=== PATIENT | male | born 1955 | race Caucasian/White ===

== ENCOUNTER → 2016-03-10 | Outpatient (CLI) | payer BC, MEDICARE ==
[~2016-03-10] MED LIST: ALLP300T; ANDROGEL; ATRV10T PO; CYCL10TA9 PO; DILT240C PO; DILTIAZEM 240 MG; EXEN2VIA SQ; FNT75TD TD; GLIM2TAB PO; GLMP2T; GLYB2.5T2 PO; HYDR-34 PO; HYDR-3720 PO; LEVO500T69 PO; LSNP10T PO; MEPE50TA PO; METF-380 PO; MTF500T; OXYC-12 PO; OXYC-309 PO; PHEN200T27 PO; PIOG45TA PO; TMSL.4C PO
--- NOTE | 2016-03-10 10:31 | Diagnostic Imaging Report ---
PROCEDURE: CT urinary tract, rule out kidney stone. TECHNIQUE: Multiple contiguous axial images were obtained through the abdomen and pelvis without the use of intravenous contrast. INDICATION: Right-sided abdominal pain. Hematuria. History of previous lithotripsy. COMPARISON: 02/09/2008. FINDINGS: Included views of the lung bases are clear. CT ABDOMEN: There is lsskuvvu-ot-sjnxdz right-sided hydroureteronephrosis. This is secondary to a 5 mm this and the distal right ureter just proximal to the UVJ. Additional 4 mm calculus is seen within the urinary bladder in the region of the UVJ (images 144 and 148, series 2). There is a single nonobstructive renal calculus within the inferior pole the left kidney. There is no hydronephrosis or other evidence of obstruction on the left. There is a 1.1 cm rounded fat density lesion involving the posterior margins of the inferior pole of the right kidney. This has increased in size compared to 0.5 cm on exam dated 02/01/2008 and could represent angiomyolipoma. The liver, spleen, pancreas, and adrenal glands have a normal noncontrast CT appearance. Small bowel loops are nondistended. Normal appendix cannot be adequate identified, but there is no pericecal inflammation. There is colonic diverticulosis, but no CT evidence of acute diverticulitis. There is no loculated fluid collection, free fluid or free air. No abnormal mesenteric or retroperitoneal adenopathy is seen. There is mild scattered calcified aortic and arterial atherosclerosis. Bony structures show no acute abnormalities. There is a fat-containing umbilical hernia. Ostia measures roughly 2.[address] PELVIS: Again, calculi are seen in the distal right ureter and UVJ. There is no loculated fluid collection, free fluid or free air within the pelvis. No abnormal lymph nodes are seen. Bony structures show no acute malleus IMPRESSION: 1. Fkpxpeos-sx-xbhsxb right-sided hydroureteronephrosis secondary to calculi within the distal right ureter and at the right UVJ. 2. Additional nonobstructive left renal calculus. 3. 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 4. Colonic diverticulosis, but no CT evidence of acute diverticulitis. 5. Fat-containing umbilical hernia. Dictated by: Dictated on workstation # [id number]
== END ==
LOC: RAD 09:18
PROVIDERS: ATTEND Registered Nurse
DX: R10.31 Right lower quadrant pain (principal); R31.9 Hematuria, unspecified; Z87.442 Personal history of urinary calculi; N13.2 Hydronephrosis with renal and ureteral calculous obstruction; K57.30 Diverticulosis of large intestine without perforation or abscess without bleeding; K42.9 Umbilical hernia without obstruction or gangrene
CPT/HCPCS: 74176

== ENCOUNTER → 2016-03-10 | Outpatient (CLI) | payer BC, MEDICARE ==
--- NOTE | 2016-03-10 13:02 | Diagnostic Imaging Report ---
INDICATION: Nephrolithiasis. KUB FINDINGS: There is a 6 mm opaque stone projecting over the inferior pole of left kidney. No appreciable radiopaque stone is seen in the right kidney. Bowel gas pattern is normal. Patient has had previous fusion at L5-S1. IMPRESSION: Left nephrolithiasis. Dictated by: Dictated on workstation # [id number]
== END ==
LOC: RAD 12:10
PROVIDERS: ATTEND Urology
DX: N20.1 Calculus of ureter (principal)
CPT/HCPCS: 74000

== ENCOUNTER → 2016-03-13 | Outpatient (CLI) | payer BC, MEDICARE ==
--- NOTE | 2016-03-13 13:42 | Diagnostic Imaging Report ---
INDICATION: Nephrolithiasis. EXAMINATION: KUB at 11:41 AM. FINDINGS: There is a 6 mm stone projecting over the lower pole of the left kidney. The bowel gas pattern is normal. The patient has had previous fusion at L5-S1. IMPRESSION: Left nephrolithiasis. Dictated by: Dictated on workstation # [id number]
== END ==
LOC: RAD 11:13
PROVIDERS: ATTEND Urology
DX: N20.0 Calculus of kidney (principal)
CPT/HCPCS: 74000

== ENCOUNTER → 2020-10-04 | Outpatient (CLI) | payer BC, MEDICARE ==
--- NOTE | 2020-10-04 10:44 | Diagnostic Imaging Report ---
INDICATION: Knee pain. COMPARISON: None available. TECHNIQUE: Three radiographs of the left knee dated 10/04/2020. FINDINGS: No acute fracture or dislocation. No destructive osseous process. Mild medial and lateral joint space narrowing. Mild osteophytosis. Faint chondrocalcinosis of the menisci is noted, greatest involving the lateral meniscus. Calcifications noted along the anterior aspect of the lateral tibial spine. Small knee joint effusion. Moderate-sized superior and inferior patellar enthesophytes. IMPRESSION: No acute osseous abnormality with mild degenerative changes. 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 Osteophyte versus loose body along the anterior aspect of the tibial spine. Small knee joint effusion. Additional findings as above. Dictated by: Dictated on workstation # [id number]
== END ==
LOC: RAD 09:56
PROVIDERS: ATTEND Nurse Practitioner Family
DX: M17.12 Unilateral primary osteoarthritis, left knee (principal); M11.262 Other chondrocalcinosis, left knee; M25.462 Effusion, left knee; M76.52 Patellar tendinitis, left knee; M25.862 Other specified joint disorders, left knee; M25.762 Osteophyte, left knee
CPT/HCPCS: 73562

== ENCOUNTER → 2021-04-22 | Outpatient (CLI) | payer BC, MEDICARE ==
--- NOTE | 2021-04-22 18:02 | Diagnostic Imaging Report ---
PROCEDURE: MRI lumbar spine. TECHNIQUE: Multiplanar, multisequence MRI of the lumbar spine was performed without contrast. DATE: April 22, 2021. COMPARISON: MRI lumbar spine April 13, 2020. INDICATION: 66-year-old male, increasing low back pain. FINDINGS: There is posterior spinal fusion hardware with hardware related artifact at L5-S1. There is grade 1 anterolisthesis of L5 on S1 measuring 4 mm. There is a T1 and T2 hyperintense lesion in the L3 vertebral body compatible with benign vertebral body hemangioma. There is no evidence of a diffuse marrow infiltrating or replacing process. There is no identified compression deformity or fracture. There is no identified focal concerning bone lesion. The visualized cord and conus medullaris is unremarkable and terminates at the L1-L2 level. There is mild disc height loss at L2-L3. There is severe disc height loss at L5-S1. There is partial ankylosis across the L5-S1 disc space. L1-L2: There is an annular tear. There is mild diffuse disc bulge. There is mild narrowing of the bilateral lateral recesses. The facet joints and ligamentum flavum are unremarkable. There is mild bilateral foraminal narrowing. There is moderate spinal canal stenosis. L2-L3: There is diffuse disc bulge eccentric to the right. There is severe narrowing of the right lateral recess and moderate narrowing of the left lateral recess. There is some prominence of the posterior epidural fat. The facet joints and ligamentum flavum are unremarkable. There is moderate to severe right and moderate left foraminal narrowing. There is severe spinal canal stenosis. L3-L4: There is a large diffuse disc bulge. There is severe narrowing of the bilateral lateral recesses. The facet joints and ligamentum flavum are unremarkable. There is severe bilateral foraminal narrowing. There is severe spinal canal stenosis. L4-L5: There is very limited evaluation at this level given the degree of hardware related artifact. There is no obvious disc protrusion or extrusion. There is limited assessment of foraminal stenosis and spinal stenosis at this level. There is no obvious severe spinal stenosis. L5-S1: There is no visualized disc protrusion or extrusion. There is no high-grade narrowing of the lateral recesses or spinal canal. There is limited assessment for foraminal stenosis given hardware related artifact. IMPRESSION: 1. Multilevel predominantly disc degenerative changes of the lumbar spine most notable at L2-L3, L3-L4 and L1-L2. 2. Grade 1 anterolisthesis of L5 on S1 with posterior spinal fusion hardware at L5-S1. 3. There is a substantial progression of arthritis since prior MRI on April 13, 2010. Dictated by: Dictated on workstation # [id number]
== END ==
LOC: RAD 13:15
PROVIDERS: ATTEND Nurse Practitioner Family
DX: M51.36 Other intervertebral disc degeneration, lumbar region (principal); M43.17 Spondylolisthesis, lumbosacral region; M47.816 Spondylosis without myelopathy or radiculopathy, lumbar region; Z98.1 Arthrodesis status
CPT/HCPCS: 72148

== ENCOUNTER 2021-06-15 22:04 | Emergency (ER) | payer BC, MEDICARE ==
[~2021-06-15] VITALS: Ht 187 cm; Wt 129.0 kg
[2021-06-15] MEDS ORDERED: morphine INJ 10 MG/ML 1ML (SYR OR VIAL) IM STA (22:34)
--- NOTE | 2021-06-15 22:38 | ED Back Pain ---
General Chief Complaint: Back Problems Stated Complaint: SEVERE BACK PAIN Nursing Triage Note: PT AMB TO [facility] WITH SPOUSE WITH C/O R SIDE LOW BACK PAIN FOR A FEW DAYS. PT HAS CHRONIC LOW BACK PAIN Source of Information: Patient Exam Limitations: No Limitations History of Present Illness Date Seen by Provider: June 15, 2021 Time Seen by Provider: 22:20 Initial Comments Patient reports the ER by private conveyance with intractable right-sided low back pain not radiating down past his buttock. No numbness tingling loss of control of bowel or bladder. No recent trauma. He has history of imaging and surgeries on his back. He has a new surgeon he supposed to follow-up with Dr. Massey. He is known to Dr. DELACRUZ. He typically relies on Percocet 10 mg 3 times a day in addition to fentanyl patches however he says a cleaning lady still his fentanyl patches 2 days ago and now his pain is intractable despite Tylenol and topical creams. Allergies and Home Medications Allergies Coded Allergies: celecoxib (Unverified Allergy, Unknown, N/V, 04/22/21) Patient Home Medication List Home Medication List Reviewed: Yes Atorvastatin Calcium (Lipitor 10 Mg) 10 Mg Tablet, 1 EACH PO DAILY, (Reported) Entered as Reported by: MISA PETERSON on 02/01/08 09 Cyclobenzaprine Hcl (Cyclobenzaprine Hcl) 10 Mg Tablet, 1 EACH PO Q8HR PRN PRN for SPASMS Prescribed by: MARE SANFORD on 03/14/131950 Diltiazem Hcl (Diltiazem Cd 240 Mg (Once Daily)) 240 Mg Cap.sr.24h, 1 EACH PO DAILY, (Reported) Entered as Reported by: GILDARDO OLVERA on 04/04/10 1010 Exenatide Microspheres (Bydureon) 2 Mg Vial, 2 MG SQ WEEKLY, (Reported) Entered as Reported by: ELISA CERRATO on 08/14/12 1341 Fentanyl (Duragesic 75MCG Patch) 1 Ea Patch, 1 EACH TD Q72H, (Reported) Entered as Reported by: MISA PETERSON on 02/01/08 09 Glimepiride (Glimepiride) 2 Mg Tablet, 2 MG PO DAILY, (Reported) Entered as Reported by: ELISA CERRATO on 08/14/12 1341 Hydrocodone Bit/Acetaminophen (Lortab 7.5 Mg Tablet) 1 Each Tablet, 1-2 EACH PO Q6H PRN for PAIN Prescribed by: MARE SANFORD on 03/14/131950 Levofloxacin (Levaquin 500 Mg) 500 Mg Tab, 1 EACH PO DAILY Prescribed by: MARE SANFORD on 12/01/122219 Lisinopril (Zestril) 10 Mg Tab, 10 MG PO DAILY, (Reported) Entered as Reported by: MISA PETERSON on 02/01/08 0925 Metformin Hcl (Metformin 1000 Mg) 1,000 Mg Tablet, 1 EACH PO BID WITH MEALS, (Reported) Entered as Reported by: SAJI HOLLIDAY on 04/13/10 1452 Oxycodone Hcl/Acetaminophen (Percocet 5-325 Mg Tablet) 1 Each Tablet, 1-2 EACH PO Q6H PRN Prescribed by: BRANNON OLIVO on 07/10/12 1213 Oxycodone Hcl/Acetaminophen (Oxycodone-Acetaminophen 5-325) 1 Each Tablet, 1 EACH PO Q4H PRN Prescribed by: MARE SANFORD on 12/01/122219 Phenazopyridine Hcl (Pyridium) 200 Mg Tablet, 1 EACH PO TID Prescribed by: MARE SANFORD on 12/01/122219 Pioglitazone Hcl (Actos) 45 Mg Tablet, 45 MG PO DAILY, (Reported) Entered as Reported by: GILDARDO OLVERA on 04/04/10 1010 [Androgel] , (Reported) Entered as Reported by: GILDARDO OLVERA on 04/04/10 1010 Review of Systems Constitutional: No chills, No diaphoresis EENTM: No ear discharge, No ear pain Respiratory: No cough, No short of breath Cardiovascular: No chest pain, No edema Gastrointestinal: No abdominal pain, No nausea, No vomiting Genitourinary: No discharge, No dysuria All Other Systems Reviewed Negative Unless Noted: Yes Past Inkwspg-Bscuwd-Ttkoga Hx Patient Social History Tobacco Use?: No Use of E-Cig and/or Vaping dev: No Substance use?: No Alcohol Use?: Yes Alcohol type: Hard Liquor Alcohol Frequency: Once in a while Pt feels they are or have been: No Immunizations Up To Date First/Initial COVID19 Vaccinat: 2020 Second COVID19 Vaccination Rosas: 2020 COVID19 Vaccine Factory Hand: CORINDunia Past Medical History Surgery/Hospitalization HX: DM, HTN, HLD Reproductive Disorders: No Sexually Transmitted Disease: No Chronic Back Pain Diabetes, Non-Insulin dep Family Medical History No Pertinent Family Hx Physical Exam Vital Signs Vital Signs - First Documented 06/15/21 22:16 Temp 36.3 Pulse 103 Resp 20 B/P (MAP) 197/113 (141) Capillary Refill : Height, Weight, BMI Height: 6'2" Weight: 320lbs. oz. 145.368219em; 36.00 BMI Method:Stated General Appearance: Mild Distress, Obese HEENT: PERRL/EOMI, Pharynx Normal, Moist Mucous Membranes Neck: Full Range of Motion, Normal Inspection Cardiovascular: Regular Rate, Rhythm, Normal Peripheral Pulses Respiratory: No Accessory Muscle Use, No Respiratory Distress Back: Normal Inspection, No Vertebral Tenderness, Muscle Spasm (Right-sided paravertebral lumbar pain.) Neurologic/Psychiatric: Alert, Oriented x3, No Motor/Sensory Deficits, Normal Mood/Affect Skin: Normal Color, Warm/Dry Procedures/Interventions Progress Point tenderness injection: 1.5 cc of 1% lidocaine without epinephrine mixed with half percent Marcaine without epinephrine 1.5 cc. Site was cleansed thoroughly with alcohol and using Z track method we injected the point of maximal tenderness using a 25-gauge 1-1/2 inch needle. We could n ot aspirate any blood on withdrawal of the plunger so we injected in the region of his point tenderness the admixture and then covered with a sterile bandage. Patient tolerated the procedure well Progress/Results/Core Measures Results/Orders My Orders Orders - JAE STEPHEN Bupivacaine 0.5% Injection (Sensorcaine (06/15/21 22:45) Morphine Injection (Morphine Injection (06/15/21 22:34) Medications Given in ED Current Medications Medications Dose Ordered Sig/Gallito Route Start Time Stop Time Status Last Admin Dose Admin Bupivacaine HCl 30 ml ONCE ONCE INJ 06/15/21 22:45 06/15/21 22:46 06/15/21 22:41 30 ML Vital Signs/I&O 06/15/21 22:16 Temp 36.3 Pulse 103 Resp 20 B/P (MAP) 197/113 (141) Blood Pressure Mean: 141 Progress Progress Note : Time: 22:37 Progress Note Nontraumatic right sided lumbago. Will give him some morphine for his complication of opiate withdrawal. Lidocaine and Marcaine injection point tenderness. Departure Impression Primary Impression: Lumbago Qualified Codes: M54.50 - Low back pain, unspecified Disposition: HOME, SELF-CARE Condition: Stable Departure-Patient Inst. Decision time for Depature: 22:43 Referrals: ESPERANZA DELACRUZ MD (PCP/Family) Primary Care Physician Patient Instructions: Low Back Pain in Adults Add. Discharge Instructions: Follow-up with Dr. Delacruz tomorrow. Heating pads, topical creams, lidocaine patches etc. All discharge instructions reviewed with patient and/or family. Voiced u nderstanding. Copy Copies To 1: ESPERANZA DELACRUZ MD, TITUS J June 15, 2021 22:38
[2021-06-15] MEDS ORDERED: BUPIVACAINE 0.5% 30 ML (SENSORCAINE) VIAL INJ ONE (22:45)
[2021-06-15 22:55] VITALS: BP 159/107
== END 2021-06-15 22:56 | disposition home or self-care (01) ==
LOC: EDUNIT# 22:04 → ER 22:08
DX: G89.29 Other chronic pain (principal); M54.50 Low back pain, unspecified; Z98.890 Other specified postprocedural states

== ENCOUNTER 2021-09-16 15:17 | Emergency (ER) | payer BC, MEDICARE ==
[~2021-09-16] VITALS: Ht 187.9 cm; Wt 131.5 kg
[2021-09-16] MEDS ORDERED: HYDROcodone/APAP 7.5 MG/325 MG (LORTAB, LORCET PLUS) TABLET PO ONE (16:00)
--- NOTE | 2021-09-16 16:59 | ED Fall/Injury ---
General Chief Complaint: Trauma-Non Activation Stated Complaint: FELL ON BUTT, PAIN Nursing Triage Note: slipped on some water while at home last night around 1900 landing on his "butt". states has increased pain today to his tailbone Source: patient, family Exam Limitations: no limitations History of Present Illness Date Seen by Provider: Sep 16, 2021 Time Seen by Provider: 15:42 Initial Comments Patient is a 66-year-old male history of chronic pain and severe degenerative changes in the right hip. He had a mechanical trip and fall at around 7:00 last night slipping on some water and falling onto his buttocks. Patient and his states that he had a significant amount of difficulty in getting back up to his feet. He was finally able to do so. He denies any pain in his lower extremities other than his chronic pain. No numbness, tingling or weakness. He does ambulate with a cane. He denies back pain, the pain is all in his lower pe lvis. He denies loss of bowel or bladder function, he denies loss sensation to the groin. He complains of some swelling and bruising discoloration to the fingers of the right hand where he attempted to catch himself. He did not hit his head or have loss of consciousness. He is scheduled to have a hip replacement December 12 at [facility]. All other review of systems reviewed and negative except as stated. Location Injury Occurred: at home Occurred: yesterday Severity: severe Injuries/Pain Location: pelvis Context: tripped Loss of Consciousness: no loss of consciousness Modifying Factors: Worse With Movement Associated Symptoms (Fall): Denies Symptoms Allergies and Home Medications Allergies Coded Allergies: celecoxib (Unverified Allergy, Unknown, N/V, 04/22/21) Patient Home Medication List Home Medication List Reviewed: Yes Atorvastatin Calcium (Lipitor 10 Mg) 10 Mg Tablet, 1 EACH PO DAILY, (Reported) Entered as Reported by: MISA PETERSON on 02/01/08924 Cyclobenzaprine Hcl (Cyclobenzaprine Hcl) 10 Mg Tablet, 1 EACH PO Q8HR PRN PRN for SPASMS Prescribed by: MARE SANFORD on 03/14/131950 Diltiazem Hcl (Diltiazem Cd 240 Mg (Once Daily)) 240 Mg Cap.sr.24h, 1 EACH PO DAILY, (Reported) Entered as Reported by: GILDARDO OLVERA on 04/04/10 1010 Exenatide Microspheres (Bydureon) 2 Mg Vial, 2 MG SQ WEEKLY, (Reported) Entered as Reported by: ELISA CERRATO on 08/14/12 1341 Fentanyl (Duragesic 75MCG Patch) 1 Ea Patch, 1 EACH TD Q72H, (Reported) Entered as Reported by: MSIA PETERSON on 02/01/08 0926 Glimepiride (Glimepiride) 2 Mg Tablet, 2 MG PO DAILY, (Reported) Entered as Reported by: ELISA CERRATO on 08/14/12 1341 Hydrocodone Bit/Acetaminophen (Lortab 7.5 Mg Tablet) 1 Each Tablet, 1-2 EACH PO Q6H PRN for PAIN Prescribed by: MARE SANFORD on 03/14/131950 Levofloxacin (Levaquin 500 Mg) 500 Mg Tab, 1 EACH PO DAILY Prescribed by: MARE SANFORD on 12/01/122219 Lisinopril (Zestril) 10 Mg Tab, 10 MG PO DAILY, (Reported) Entered as Reported by: MISA PETERSON on 02/01/08 09 Metformin Hcl (Metformin 1000 Mg) 1,000 Mg Tablet, 1 EACH PO BID WITH MEALS, (Reported) Entered as Reported by: SAJI HOLLIDAY on 04/13/10 1452 Oxycodone Hcl/Acetaminophen (Percocet 5-325 Mg Tablet) 1 Each Tablet, 1-2 EACH PO Q6H PRN Prescribed by: BRANNON OLIVO on 07/10/12 1213 Oxycodone Hcl/Acetaminophen (Oxycodone-Acetaminophen 5-325) 1 Each Tablet, 1 EACH PO Q4H PRN Prescribed by: MARE SANFORD on 12/01/122219 Phenazopyridine Hcl (Pyridium) 200 Mg Tablet, 1 EACH PO TID Prescribed by: MARE SANFORD on 12/01/122219 Pioglitazone Hcl (Actos) 45 Mg Tablet, 45 MG PO DAILY, (Reported) Entered as Reported by: GILDARDO OLVERA on 04/04/10 1010 [Androgel] , (Reported) Entered as Reported by: GILDARDO OLVERA on 04/04/10 1010 Review of Systems Review of Systems Constitutional: see HPI Eyes: No Symptoms Reported Ears, Nose, Mouth, Throat: no symptoms reported Respiratory: no symptoms reported Cardiovascular: no symptoms reported Gastrointestinal: no symptoms reported Genitourinary: no symptoms reported Musculoskeletal: other (Pelvic pain) Skin: no symptoms reported All Other Systems Reviewed Negative Unless Noted: Yes Past Xbctaiw-Mawstk-Terury Hx Patient Social History Tobacco Use?: No Use of E-Cig and/or Vaping dev: No Substance use?: Yes Substance type: Other Additional substance use comme: thc gummies Substance frequency: Once in a while Alcohol Use?: No Pt feels they are or have been: No Immunizations Up To Date Influenza Vaccine Up-to-Date: No; Not Current First/Initial COVID19 Vaccinat: feb 2020 Second COVID19 Vaccination Rosas: mar 2020 COVID19 Vaccine Physical Therapy Coordinator: modernchaz Past Medical History Surgery/Hospitalization HX: DM, HTN, HLD Reproductive Disorders: No Sexually Transmitted Disease: No Chronic Back Pain Diabetes, Non-Insulin dep Family Medical History No Pertinent Family Hx Physical Exam Vital Signs Vital Signs - First Documented Capillary Refill : Less Than 3 Seconds Height, Weight, BMI Height: 6'2" Weight: 320lbs. oz. 145.446675pu; 37.00 BMI Method:Stated General Appearance: WD/WN, mild distress (Appears to be on current) Cardiovascular: regular rate, rhythm Respiratory: lungs clear, normal breath sounds, no respiratory distress, no accessory muscle use Gastrointestinal: normal bowel sounds, non tender, soft Extremities: normal range of motion, no calf tenderness, other (Limited range of motion to the bilateral knees secondary to pain; bruising to the right middle finger with some swelling. Range of motion intact, good strength) Neurologic/Psychiatric: no motor/sensory deficits, alert, normal mood/affect, oriented x 3 Skin: normal color, warm/dry Progress/Results/Core Measures Results/Orders My Orders Orders - INO DAUGHERTY MD Pelvis (09/16/21 15:54) Hydrocodone/Apap 7.5/325 Tab (Lortab 7. (09/16/21 16:00) Medications Given in ED Current Medications Medications Dose Ordered Sig/Gallito Route Start Time Stop Time Status Last Admin Dose Admin Acetaminophen/ Hydrocodone Bitart 1 ea ONCE ONCE PO 09/16/21 16:00 09/16/21 16:01 DC 09/16/21 16:11 1 EA Vital Signs/I&O 09/16/21 09/16/21 15:55 15:55 Temp 36.1 36.1 Pulse 114 114 Resp 18 18 B/P (MAP) 112/86 (95) 112/86 (95) Pulse Ox 94 95 Blood Pressure Mean: 95 Progress Progress Note : Time: 17:27 Progress Note Patient given a hydrocodone p.o. here in the department. He is wearing half of 100 mcg fentanyl patch. When I advised him that there was no obvious bony abnormality to the bones of the pelvis he was able to get up from the chair he was reclining in and settle in a wheelchair. All, it seemed he was eager to know was if he had broken a bone. He declined any further pain medicines or prescriptions. I did advise him on other conservative measures to help alleviate his pain. Both he and his verbalized understanding. All questions were sought and answered. Patient is stable for discharge. Diagnostic Imaging Diagonstic Imaging: Xray Plain Films/CT/US/NM/MRI: pelvis Comments [facility], [place] NAME: NGHIA ALVES [facility] REC#: [id number] PT STATUS: REG ER : 1955 PHYSICIAN: INO DAUGHERTY MD ADMIT DATE: 09/16/21/ER Signed Date of Exam:09/16/21 PELVIS INDICATION: Pain, fall. COMPARISON: 03/13/2016. TECHNIQUE: Two radiographs of the pelvis dated 09/16/2021. FINDINGS: Postsurgical changes within the lumbosacral spine are again identified without evidence of hardware complication on the submitted images. 8 mm calcification overlying the inferior pole of the left renal shadow is again identified, appearing stable. No acute fracture or dislocation. No destructive osseous process. Severe degenerative changes of the right hip are noted with severe joint space narrowing superiorly and prominent osteophyte formation. Mild degenerative changes of the left hip are also identified. The sacroiliac joints are intact. IMPRESSION: No acute osseous abnormality with scattered osseous degenerative changes, including severe degenerative changes of the right hip. Left renal calculus is again suspected. Dictated by: Dictated on workstation # [id number] Dict: 09/16/21 1070 Trans: 09/16/211702 [id number] Interpreted by: GARRICK CHO MD Electronically signed by: GARRICK CHO MD 09/16/211702 Departure Impression Primary Impression: Fall Qualified Codes: W19.XXXA - Unspecified fall, initial encounter Additional Impression: Contusion of pelvis Qualified Codes: S30.0XXA - Contusion of lower back and pelvis, initial encounter Disposition: HOME, SELF-CARE Condition: Stable Departure-Patient Inst. Decision time for Depature: 17:09 Referrals: ESPERANZA MORGAN MD (PCP/Family) Primary Care Physician Patient Instructions: Coccyx Injury Add. Discharge Instructions: Continue your pain medications as prescribed. Alternate heat packs and ice packs to the area of your low back and buttocks as needed for inflammation and pain. You can add tkft-vgv-bbjzynt Biofreeze or other pain relieving ointments to the area as well which may help add to the pain relief from your fentanyl patch as well as heat and ice patches. If you develop numbness, tingling or weakness in your legs or you lose bowel or bladder function or you have any other emergent, concerning symptoms please come back to the emergency room for reevaluation. Copy Copies To 1: ESPERANZA MORGAN MD, KATHRYN M MD Sep 16, 2021 16:59
[2021-09-16 17:22] VITALS: BP 118/82
== END 2021-09-16 17:25 | disposition home or self-care (01) ==
LOC: EDUNIT# 15:17 → ER 15:20
DX: S30.0XXA Contusion of lower back and pelvis, initial encounter (principal); S60.031A Contusion of right middle finger without damage to nail, initial encounter; M25.561 Pain in right knee; M25.562 Pain in left knee; W01.0XXA Fall on same level from slipping, tripping and stumbling without subsequent striking against object, initial encounter; Y92.009 Unspecified place in unspecified non-institutional (private) residence as the place of occurrence of the external cause
CPT/HCPCS: 72170

== ENCOUNTER 2022-02-18 21:24 | Emergency (ER) | payer MEDICARE ==
[~2022-02-18] VITALS: Ht 188 cm; Wt 129.3 kg
--- NOTE | 2022-02-18 21:53 | ED Back Pain ---
General Chief Complaint: Back Problems Stated Complaint: BACK PAIN Source of Information: Patient Exam Limitations: No Limitations (GWYN VASQUEZ) History of Present Illness Date Seen by Provider: Feb 18, 2022 Time Seen by Provider: 21:43 Initial Comments 66M with PMH of chronic back pain, HTN, DMII, A fibb presents to ED with lower back pain that is non-radiating rated 10/10 and described as a sharp stabbing pain. Pain is localized over the spinous process of L2. Denies any recent trauma heavy lifting or inciting event. For pain, Pt takes percocet and recently ran out of fentnyl patches. Last percocet dose was " a couple pills a few hours ago." Denies any numbness or weakness of LE. No troubles with BM or voiding. Location: Lumbar Spine Timing/Duration: 1 Day (exacterbation), Other (years of chronic back pain) Severity: Severe Pain/Injury Location: Back (L1-L2) Radiation: Other (none) Method of Injury: Unknown Associated Symptoms: No muscle spasms, No fever, No weakness, No numbness in legs/feet, No tingling in legs/feet, No sensory/motor loss; lower back pain; No loss of bladder control, No loss of bowel control (GWYN VASQUEZ) Allergies and Home Medications Allergies Coded Allergies: celecoxib (Unverified Allergy, Unknown, N/V, 04/22/21) Patient Home Medication List Home Medication List Reviewed: Yes (ANITA VASQUEZULTON) Atorvastatin Calcium (Lipitor 10 Mg) 10 Mg Tablet, 1 EACH PO DAILY, (Reported) Entered as Reported by: MISA PETERSON on 02/01/08 0925 Cyclobenzaprine Hcl (Cyclobenzaprine Hcl) 10 Mg Tablet, 1 EACH PO Q8HR PRN PRN for SPASMS Prescribed by: MARE SANFORD on 03/14/13 195 Diltiazem Hcl (Diltiazem Cd 240 Mg (Once Daily)) 240 Mg Cap.sr.24h, 1 EACH PO DAILY, (Reported) Entered as Reported by: GILDARDO OLVERA on 04/04/10 1010 Exenatide Microspheres (Bydureon) 2 Mg Vial, 2 MG SQ WEEKLY, (Reported) Entered as Reported by: ELISA CERRATO on 08/14/12 1341 Fentanyl (Duragesic 75MCG Patch) 1 Ea Patch, 1 EACH TD Q72H, (Reported) Entered as Reported by: MISA PETERSON on 02/01/08 0926 Glimepiride (Glimepiride) 2 Mg Tablet, 2 MG PO DAILY, (Reported) Entered as Reported by: ELISA CERRATO on 08/14/12 1341 Hydrocodone Bit/Acetaminophen (Lortab 7.5 Mg Tablet) 1 Each Tablet, 1-2 EACH PO Q6H PRN for PAIN Prescribed by: MARE SANFORD on 03/14/131950 Levofloxacin (Levaquin 500 Mg) 500 Mg Tab, 1 EACH PO DAILY Prescribed by: MARE SANFORD on 12/01/122219 Lisinopril (Zestril) 10 Mg Tab, 10 MG PO DAILY, (Reported) Entered as Reported by: MISA PETERSON on 02/01/08 0925 Metformin Hcl (Metformin 1000 Mg) 1,000 Mg Tablet, 1 EACH PO BID WITH MEALS, (Reported) Entered as Reported by: SAJI HOLLIDAY on 04/13/10 1452 Oxycodone Hcl/Acetaminophen (Percocet 5-325 Mg Tablet) 1 Each Tablet, 1-2 EACH PO Q6H PRN Prescribed by: BRANNON OLIVO on 07/10/12 1213 Oxycodone Hcl/Acetaminophen (Oxycodone-Acetaminophen 5-325) 1 Each Tablet, 1 EACH PO Q4H PRN Prescribed by: MARE SANFORD on 12/01/122219 Phenazopyridine Hcl (Pyridium) 200 Mg Tablet, 1 EACH PO TID Prescribed by: MARE SANFORD on 12/01/12 222 Pioglitazone Hcl (Actos) 45 Mg Tablet, 45 MG PO DAILY, (Reported) Entered as Reported by: GILDARDO OLVERA on 04/04/10 1010 [Androgel] , (Reported) Entered as Reported by: GILDARDO OLVERA on 04/04/10 1010 Review of Systems Constitutional: No chills, No diaphoresis, No fever, No malaise, No weakness EENTM: No hearing loss, No blurred vision Respiratory: No cough, No dyspnea on exertion, No short of breath Cardiovascular: No chest pain, No edema, No palpitations Gastrointestinal: No abdominal pain, No constipation, No diarrhea Genitourinary: No decreased output, No dysuria, No frequency, No hematuria, No incontinence Musculoskeletal: back pain (point tenderness over spinous process of L2) Skin: No change in color, No change in hair/nails; other (surgical scar over L1-L5) Psychiatric/Neurological: Denies Anxiety, Denies Depressed, Denies Numbness, Denies Paresthesia (SAUCE,GWYN) Past Mfwwmdo-Wrknub-Bgvbxz Hx Patient Social History Tobacco Use?: No Smokeless Tobacco Frequency: Never a User Use of E-Cig and/or Vaping dev: No Use of E-Cig and/or Vaping Aguilar: Never a User Substance use?: Yes Substance type: Other Additional substance use comme: THC GUMMIES Substance frequency: Once in a while Alcohol Use?: Yes Alcohol Frequency: Daily Pt feels they are or have been: No (SAUCE,GWYN) Immunizations Up To Date First/Initial COVID19 Vaccinat: feb 2020 Second COVID19 Vaccination Rosas: mar 2020 COVID19 Vaccine Head Swamper: MODERNA (SAUCE,GWYN) Past Medical History Surgery/Hospitalization HX: DM, HTN, HLD Reproductive Disorders: No Sexually Transmitted Disease: No Chronic Back Pain Diabetes, Non-Insulin dep (SAUCE,GWYN) Family Medical History No Pertinent Family Hx (SAUCE,GWYN) Physical Exam Vital Signs Vital Signs - First Documented 02/18/22 21:29 Temp 36.8 Pulse 89 Resp 17 B/P (MAP) 147/91 (109) O2 Delivery Room Air (INO FRANCO MD) Vital Signs Capillary Refill : (SAUCE,GWYN) Height, Weight, BMI Height: 6'2" Weight: 320lbs. oz. 145.471690wb; 37.00 BMI Method:Stated General Appearance: No Apparent Distress, WD/WN HEENT: PERRL/EOMI Neck: Full Range of Motion, Normal Inspection, Non Tender, Supple Cardiovascular: No Edema, No Murmur, Normal Peripheral Pulses, Irregularly Irregular Respiratory: Chest Non Tender, Lungs Clear, Normal Breath Sounds, No Accessory Muscle Use, No Respiratory Distress Peripheral Pulses: 3+ Dorsalis Pedis (R), 3+ Left Dors-Pedis (L), 3+ Radial Pulses (R), 3+ Radial Pulses (L) Gastrointestinal: Normal Bowel Sounds, No Pulsatile Mass, Non Tender, Soft Back: No CVA Tenderness, Vertebral Tenderness (over L2) Extremity: Normal Capillary Refill, Non Tender, No Calf Tenderness, No Pedal Edema Neurologic/Psychiatric: Alert, Oriented x3, No Motor/Sensory Deficits, Normal Mood/Affect Skin: Normal Color, Warm/Dry Lymphatic: No Adenopathy (SAUCE,GWYN) Progress/Results/Core Measures Results/Orders Vital Signs/I&O 02/18/22 21:29 Temp 36.8 Pulse 89 Resp 17 B/P (MAP) 147/91 (109) O2 Delivery Room Air (INO FRANCO MD) Progress Progress Note : Time: 22:08 Progress Note Patient seen and evaluated by me. I have reviewed the medical student's documentation. My findings are as follows: 66yo male with chronic back pain managed by an [employer] through his PCP's office. He has a "pain medicine contract" with them. He tells me he has "run out" of his pain patches last week. And also tells me he has run out of his percocet. He told the medical student he took 2 "a few hours ago" but told me his found an old hydrocodone and he took that a "few hours ago". He states he has not seen any spine physicians, nor has he sought out a pain management physician. He admits to taking more pain pills than he should and changing out the patches more often than he should. HIs last back surgery was "in the 's". He denies weakness in his legs. No bowel or bladder incontinence. No loss of sensation in his groin. No falls or direct trauma. He states he's taking 3 aleve pills at a time at home and trying to use a heating paid. When I spoke with him about his narcotic dependance he is very "matter of fact" about his use and states his pain is so severe he has to take more. He is asking for something for pain - would like a shot. I advised him he should not use the ED as pain management and he will have to try and make it until Sunday to talk to his primary care doctor. PE pertinent for obese male, NAD. CV: IRIR Chest: clear bilat Abd: soft Ext: MAEW BAck: neg SLR bilaterally, 1+ DTR at patella bilaterally. Normal strength and sensation; no saddle anesthesia; tenderness upper lumbar spine - midline ASsessment: chronic narcotic depennce; chronic back pain; no concerning findings for acute cauda equina syndrome or other acute pathology Plan: IM morphine. discharge to home with close follow up with PCP (INO FRANCO MD) Departure Impression Primary Impression: Chronic back pain Qualified Codes: M54.50 - Low back pain, unspecified; G89.29 - Other chronic pain Additional Impression: Narcotic dependency, continuous Disposition: 01 HOME, SELF-CARE Condition: Stable Departure-Patient Inst. Decision time for Depature: 22:21 (INO FRANCO MD) Referrals: ESPERANZA MORGAN MD (PCP/Family) Primary Care Physician Patient Instructions: CHRONIC PAIN Add. Discharge Instructions: Continue your home medications as prescribed. Use over the counter Aleve, 2 pills with food, twice a day. You can also supplement with extra strength tylenol. You can try over the counter Lidocaine patches for pain - use as per packaging instructions. Call your primary care doctor's office sunday morning. You should also follow up with Dr Dayan [facility]. [facility] also has pain management physicians. Return to the Emergency Department for any new, concerning or emergent complaints. Verification and Attestation of Medical Student E/M Service A medical student performed and documented this service in my presence. I reviewed and verified all information documented by the medical student and made modifications to such information, when appropriate. I personally performed the physical exam and medical decision making. Ino Franco, Feb 18, 2022,22:24 (INO FRANCO MD) Copy Copies To 1: ESPERANZA MORGAN MD, DAULTON Feb 18, 2022 21:53 INO FRANCO MD Feb 18, 2022 22:20
[2022-02-18] MEDS ORDERED: morphine INJ 10 MG/ML 1ML (SYR OR VIAL) IM STA (22:25)
[2022-02-18 22:34] VITALS: BP 149/89
== END 2022-02-18 22:35 | disposition home or self-care (01) ==
LOC: EDUNIT# 21:24 → ER 21:25
DX: M54.50 Low back pain, unspecified (principal); G89.29 Other chronic pain; F11.20 Opioid dependence, uncomplicated
CPT/HCPCS: 99284